=== PATIENT | male | born 1990 | race Caucasian/White ===

== ENCOUNTER 2016-11-10 08:59 | Day surgery (SDC) | payer OTHER, BC ==
[~2016-11-10 08:59] MED LIST: Acetaminophen/HYDROcodone 325-5 MG Tab PO PRN; Bupivacaine 0.25%/EPINEPHrine 1:200,000 10 ML SDV INJECT ONE; Ketorolac 30 MG/ML SDV ONE; Lactated Ringers 1,000 ML IV SCH; Midazolam 1 MG/ML 2 ML SDV ONE; Ondansetron 4 MG/2 ML SDV ONE; Propofol 200 MG/20 ML SDV ONE; ceFAZolin 2 GM in Premix Bag 1 BAG IV ONE; fentaNYL 100 MCG/2 ML SDV ONE
--- NOTE | 2016-11-10 09:40 | PCM.PREANE ---
Preanesthetic Assessment - Anesthesia/Transfusion/Family Hx Anesthesia History: No Prior Anesthesia Family History of Anesthesia Reaction: No Transfusion History: No Prior Transfusion(s) - Review of Systems General: No Symptoms Pulmonary: No Symptoms Cardiovascular: No Symptoms Gastrointestinal: No symptoms Neurological: No Symptoms Other: Reports: None - Physical Assessment NPO Status Date: 11/09/16 NPO Status Time: 08:30 (clear liquids) O2 Sat by Pulse Oximetry: 100 Respiratory Rate: 16 Vital Signs: Last Vital Signs Temp 36.7 C 11/10/16 09:22 Pulse 70 11/10/16 09:22 Resp 16 11/10/16 09:22 BP 120/77 11/10/16 09:22 Pulse Ox 100 11/10/16 09:22 Height: 1.78 m Weight: 79.379 kg ASA Class: 2 Mental Status: Alert & Oriented x3 Airway Class: Mallampati = 2 Dentition: Reports: Normal Dentition ROM/Head Extension: Full Lungs: Clear to auscultation, Normal respiratory effort Cardiovascular: Regular Rate, Regular Rhythm - Allergies Allergies/Adverse Reactions: Allergies Allergy/AdvReac Type Severity Reaction Status Date / Time No Known Allergies Allergy Verified 11/08/16 12:42 - Anesthesia Plan Pre-Op Medication Ordered: None - Acknowledgements Anesthesia Type Planned: General Anesthesia Pt an Appropriate Candidate for the Planned Anesthesia: Yes Alternatives and Risks of Anesthesia Discussed w Pt/Guardian: Yes Pt/Guardian Understands and Agrees with Anesthesia Plan: Yes PreAnesthesia Questionnaire HEENT History: Reports: None Cardiovascular History: Reports: None Respiratory History: Reports: None Gastrointestinal History: Reports: None Genitourinary History: Reports: None Musculoskeletal History: Reports: Fracture Other Musculoskeletal History: hx of fx thumb, no hardware Neurological History: Reports: None Psychiatric History: Reports: None Endocrine/Metabolic History: Reports: Hypothyroidism Hematologic History: Reports: None Immunologic History: Reports: None Oncologic (Cancer) History: Reports: None Dermatologic History: Reports: None - Past Surgical History Head Surgeries/Procedures: Reports: None HEENT Surgical History: Reports: Myringotomy w tube(s) Cardiovascular Surgical History: Reports: None Respiratory Surgical History: Reports: None GI Surgical History: Reports: None Male Surgical History: Reports: None Endocrine Surgical History: Reports: None Neurological Surgical History: Reports: None Musculoskeletal Surgical History: Reports: None Oncologic Surgical History: Reports: None Dermatological Surgical History: Reports: None - SUBSTANCE USE Smoking Status *Q: Current Every Day Smoker Tobacco Use Within Last Twelve Months: Cigarettes, Smokeless Tobacco Recreational Drug Use History: No - HOME MEDS Home Medications: Home Meds Levothyroxine Sodium [Levo-T] 50 mcg PO DAILY 11/08/16 [History] - CURRENT (IN HOUSE) MEDS Current Meds: Current Medications Hydrocodone Bitart/Acetaminophen ([place] 325-5 Mg) 1 tab PO Q4H PRN PRN Reason: Pain Lactated Ringer's (Ringers, Lactated) 1,000 mls @ 125 mls/hr IV ASDIRECTED LIZETH Last Admin: 11/10/16 09:23 Dose: 125 mls/hr Discontinued Medications Bupivacaine HCl/Epinephrine Bitart (Marcaine 0.25%/Epinephrine 1:200,000) 10 ml INJECT ONETIME ONE Stop: 11/10/16 08:01 Fentanyl (Sublimaze) Confirm Administered Dose 100 mcg .ROUTE .STK-MED ONE Stop: 11/10/16 08:31 Cefazolin Sodium/Dextrose 2 gm (/ Premix) 50 mls @ 100 mls/hr IV ONETIME ONE Stop: 11/10/16 08:29 Ketorolac Tromethamine (Toradol) Confirm Administered Dose 30 mg .ROUTE .STK- MED ONE Stop: 11/10/16 08:34 Midazolam HCl (Versed 1 Mg/Ml) Confirm Administered Dose 2 mg .ROUTE .STK-MED ONE Stop: 11/10/16 08:31 Ondansetron HCl (Zofran) Confirm Administered Dose 4 mg .ROUTE .STK-MED ONE Stop: 11/10/16 08:35 Propofol (Diprivan 20 Ml) Confirm Administered Dose 200 mg .ROUTE .STK-MED ONE Stop: 11/10/16 08:31 Preanesthetic Assessment - ANESTHESIA/TRANSFUSION/FAMILY HX Family History of Anesthesia Reaction: No - PHYSICAL ASSESSMENT O2 Sat by Pulse Oximetry: 100 RR: 16 Vital Signs: Last Vital Signs Temp 36.7 C 11/10/16 09:22 Pulse 70 11/10/16 09:22 Resp 16 11/10/16 09:22 BP 120/77 11/10/16 09:22 Pulse Ox 100 11/10/16 09:22 Height: 1.78 m Weight: 79.379 kg - ALLERGIES Allergies/Adverse Reactions: Allergies Allergy/AdvReac Type Severity Reaction Status Date / Time No Known Allergies Allergy Verified 11/08/16 12:42
[2016-11-10] MEDS ORDERED: fentaNYL 100 MCG/2 ML SDV IVPUSH PRN (10:38)
--- NOTE | 2016-11-10 11:57 | PCM.POSTAN ---
POST ANESTHESIA ASSESSMENT - MENTAL STATUS Mental Status: alert, oriented - RESPIRATORY Respiratory Status: respiratory rate WNL, airway patent - CARDIOVASCULAR CV Status: pulse rate WNL, blood pressure stable - GASTROINTESTINAL GI Status: no symptoms - PAIN Pain Score: 0 - POST OP HYDRATION Hydration Status: adequate & stable
--- NOTE | 2016-11-10 11:57 | PCM48HPAN ---
Post Anesthesia Note - EVALUATION WITHIN 48HRS OF ANESTHETIC Vital Signs in Normal Range: Yes Patient Participated in Evaluation: Yes Respiratory Function Stable: Yes Airway Patent: Yes Cardiovascular Function Stable: Yes Hydration Status Stable: Yes Pain Control Satisfactory: Yes Nausea and Vomiting Control Satisfactory: Yes Mental Status Recovered: Yes
[2016-11-10 12:37] VITALS: BP 111/74
[2016-11-10] MEDS ORDERED: Bupivacaine 0.25%/EPINEPHrine 1:200,000 10 ML SDV ONE (13:04)
--- NOTE | 2016-11-10 15:52 | PCM.OPNOTE ---
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 Post-Op Diagnosis: Same Anesthesia Technique: General LMA, Local Primary Surgeon: Laurence Blackwell [employer] Nurse: Chichi Faria Complications: None Condition: Good Free Text/Narrative:: Intake & Output 11/09/16 11/10/16 11/10/16 23:59 07:59 15:59 Intake Total 900 Balance 900
--- NOTE | 2016-11-10 23:02 | OR ---
SURGEON: FABRICIO RUBI MD DATE OF PROCEDURE: 11/10/2016 PROCEDURE: Fusion of left thumb interphalangeal joint. 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 ANESTHESIA: General LMA. COMPLIANCE REVIEW OFFICER: Chichi Faria. INDICATIONS: Mr. Whitlock is an unfortunate 26-year-old gentleman, who had a severe injury to his thumb while working. There was also a very unfavorable intraarticular fracture of the distal phalangeal area. The patient did not go on to heal well and has continued pain and swelling in the area with movement of the bone fragments. Risks and benefits, and fusion of the IP joint of the left thumb were discussed with him and he was in agreement to proceed. Risks were including, but not limited to, bleeding, infection, damage to underlying or overlying structures, possible need for future interventions and possible scarring. PROCEDURE IN DETAIL: After informed consent was obtained and placed on the chart, the patient was brought to the operating theater and laid in the supine position. After adequate general anesthetic was obtained, the area was anesthetized, prepped and draped in normal fashion and a time-out was completed to confirm side and site. The arm was exsanguinated and tourniquet was inflated to 200 mmHg. Once adequately confirmed, attention was then paid to the left thumb. A dorsal longitudinal incision in a curvilinear fashion was made over the interphalangeal joint. Dissection was carried down circumferentially around the joint taking care to protect the extensor and flexor tendons. The interphalangeal joint itself was excised using a bone saw and rongeur. Fluoroscopy was used to confirm adequate removal of the joint surface. The two heads of the bone were brought together and two longitudinal K-wires were placed to maintain reduction and appropriate approximation. The skin was then closed using 5-0 nylon stitch in a horizontal mattress fashion. The wound was dressed with Xeroform, fluffs, and a Kerlix gauze dressing. The patient was placed in a short-arm thumb spica splint. The patient tolerated the procedure well. All counts of needles were correct at the end the case. FOLLOWUP INSTRUCTIONS: The patient will see us in 10 to 14 days sooner if any problems, questions, or concerns. ANGÉLICA / JAX /[id number]
--- NOTE | 2016-11-14 08:21 | CR ---
EXAMINATION: Left thumb HISTORY: Confusion COMPARISON: 08/03/2016 TECHNIQUE: 5 views FINDINGS/IMPRESSION: Operative control films demonstrate pinning of the interphalangeal joint of the left thumb.
== END 2016-11-10 13:00 | disposition home or self-care (01) ==
LOC: MW.SDS 08:59
PROVIDERS: ATTEND Plastic Surgery
DX: S62.522A Displaced fracture of distal phalanx of left thumb, initial encounter for closed fracture (principal); E03.9 Hypothyroidism, unspecified; F17.210 Nicotine dependence, cigarettes, uncomplicated; Z79.899 Other long term (current) drug therapy; Z98.890 Other specified postprocedural states
CPT/HCPCS: 26860; 76000; J1885; J2250; J2405; J3010; J7120; 01830; J2704